=== PATIENT | female | born 1965 ===

== ENCOUNTER 2017-12-31 13:51 | Emergency (ER) | payer MEDICAID, OTHER ==
[2017-12-31 14:11] VITALS: RESP 18; BMI 32.9
--- NOTE | 2017-12-31 14:17 | ED PDOC ---
Arrival/HPI - General Chief Complaint: Headache Time Seen by Provider: 12/31/17 14:15 Historian: Patient - History of Present Illness Narrative History of Present Illness (Text): 12/31/17 14:20 52 year old female, whose PMH includes migraines, who presents to the emergency department complaining of headache since 11 days. Patient reports this is similar symptom to her history of migraines associated with light sensitivity, dizziness, and headache is described as pressure mainly on the left side. Patient notes taking Naprozen and Tylenol, with no significant relief. Patient denies visual changes, shortness of breath, chest pain, abdominal pain, nausea, vomiting, diarrhea, or other complaints. PMD: Dr. Richardson Time/Duration: > week Symptom Onset: Gradual Symptom Course: Unchanged Quality: Pressure Activities at Onset: Rest Context: Home Past Medical History - Provider Review Nursing Documentation Reviewed: Yes - Infectious Disease Hx of Infectious Diseases: None - Reproductive Menopause: Yes Family/Social History - Physician Review Nursing Documentation Reviewed: Yes Family/Social History: Unknown Family HX Allergies/Home Meds Allergies/Adverse Reactions: Allergies No Known Allergies Allergy (Verified 12/31/17 14:11) Review of Systems - Review of Systems Constitutional: absent: Fevers Eyes: absent: Vision Changes ENT: Other (light sensitivity ) Respiratory: absent: SOB Cardiovascular: absent: Chest Pain Gastrointestinal: absent: Abdominal Pain, Nausea Genitourinary Female: absent: Dysuria Musculoskeletal: absent: Back Pain Skin: absent: Rash Neurological: Headache, Dizziness Endocrine: absent: Diaphoresis Physical Exam Vital Signs Reviewed: Yes Vital Signs Temp Pulse Resp BP Pulse Ox 12/31/17 14:08 99.3 F 74 18 123/76 99 Temperature: Afebrile Blood Pressure: Normal Pulse: Regular Respiratory Rate: Normal Appearance: Positive for: Well-Appearing, Non-Toxic, Comfortable Pain Distress: None Mental Status: Positive for: Alert and Oriented X 3 - Systems Exam Head: Present: Atraumatic, Normocephalic Pupils: Present: PERRL Extroacular Muscles: Present: EOMI Conjunctiva: Present: Normal Lower Extremity: Present: Normal Inspection, NORMAL PULSES, Normal ROM, Neurovascularly Intact, Capillary Refill < 2 s. No: Edema, CALF TENDERNESS, Cyanosis, Tenderness, Swelling, Erythema, Deformity Neurological: Present: GCS=15, CN II-XII Intact, Speech Normal, Motor Func Grossly Intact, Normal Sensory Function, Memory Normal Skin: Present: Warm, Dry, Normal Color. No: Rashes Psychiatric: Present: Alert, Oriented x 3, Normal Insight, Normal Concentration Medical Decision Making ED Course and Treatment: 12/31/17 Impression: 52 year old female with unremarkable physical exam complaining of migraine Differential Diagnosis included but are not limited to: Migraine Plan: -- Benadryl, Reglan, and Toradol -- Reassess and disposition Progress Notes: 12/31/17 16:05 Patients symptoms subsided and she feels much much better. She will make sure to see a neurologist and to follow up with her PMD. Rx Naproxen. I advised her to read discharge instructions and explained to her to return to the ED if symptoms worsen or any other concern. - Medication Orders Current Medication Orders: Discontinued Medications Diphenhydramine HCl (Benadryl) 50 mg IVP STAT STA Stop: 12/31/17 14:28 Last Admin: 12/31/17 14:37 Dose: 50 mg IVP Administration Document 12/31/17 14:37 MR (Rec: 12/31/17 14:37 [id number]) Charges for Administration # of IVP Administrations 1 Ketorolac Tromethamine (Toradol) 30 mg IVP STAT STA Stop: 12/31/17 14:28 Last Admin: 12/31/17 14:37 Dose: 30 mg MAR Pain Assessment Document 12/31/17 14:37 MR (Rec: 12/31/17 14:37 [id number]) Pain Reassessment Is this a pain reassessment? No IVP Administration Document 12/31/17 14:37 MR (Rec: 12/31/17 14:37 MR [id number]) Charges for Administration # of IVP Administrations 1 Metoclopramide HCl (Reglan) 10 mg IVP STAT STA Stop: 12/31/17 14:28 Last Admin: 12/31/17 14:36 Dose: 10 mg IVP Administration Document 12/31/17 14:36 MR (Rec: 12/31/17 14:36 [id number]) Charges for Administration # of IVP Administrations 1 - Scribe Statement The provider has reviewed the documentation as recorded by the Man Salvador Provider Scribe Attestation: All medical record entries made by the Scribe were at my direction and personally dictated by me. I have reviewed the chart and agree that the record accurately reflects my personal performance of the history, physical exam, medical decision making, and the department course for this patient. I have also personally directed, reviewed, and agree with the discharge instructions and disposition. Disposition/Present on Arrival - Present on Arrival Any Indicators Present on Arrival: No History of DVT/PE: No History of Uncontrolled Diabetes: No Urinary Catheter: No History of Decub. Ulcer: No History Surgical Site Infection Following: None - Disposition Have Diagnosis and Disposition been Completed?: Yes Diagnosis: Migraine Disposition: HOME/ ROUTINE Disposition Time: 16:06 Patient Plan: Discharge Patient Problems: Current Active Problems Problem Status Onset Migraine Acute Condition: IMPROVED Discharge Instructions (ExitCare): Migraine Headache (DC), Migraine Headaches in Adults Additional Instructions: YANE QUIROS, thank you for letting us take care of you today. Your provider was William Boothe DO and you were treated for MIGRAINE. The emergency medical care you received today was directed at your acute symptoms. If you were prescribed any medication, please fill it and take as directed. It may take several days for your symptoms to resolve. Return to the Emergency Department if your symptoms worsen, do not improve, or if you have any other problems. Please contact your doctor or call one of the physicians/clinics you have been referred to that are listed on the Patient Visit Information form that is included in your discharge packet. Bring any paperwork you were given at discharge with you along with any medications you are taking to your follow up visit. Our treatment cannot replace ongoing medical care by a primary care provider outside of the emergency department. Thank you for allowing the [facility] team to be part of your care today. If you had an X-Ray or CT scan: A Radiologist will review the ED reading if any change in treatment is needed we will contact you. If you had a blood, urine, or wound culture: It will take several days for the results, if any change in treatment is needed we will contact you. If you had an STI test: It will take 48 hours for the results. Please call after 1 week if you have not heard back. Prescriptions: Naproxen 500 mg PO BID PRN #30 tab PRN Reason: Pain, Moderate (4-7) Referrals: Saleeb,Phil S, MD [Staff Provider] - Follow up with primary Siddhartha Moreno MD [Staff Provider] - Follow up with primary Forms: [employer] ([place]izen [place])
[2017-12-31] MEDS ORDERED: DiphenhydrAMINE 50 mg/ml Inj IVP STA (14:27)
[2017-12-31] MEDS ORDERED: HYDROmorphone 1 mg/ml ISec IVP STA (14:57)
[2017-12-31 16:27] VITALS: BP 118/70; PULSE 70; TEMP 98.6; O2SAT 97
== END 2017-12-31 16:13 | disposition home or self-care (01) ==
LOC: ED 13:51
DX: G43.909 Migraine, unspecified, not intractable, without status migrainosus (principal)
CPT/HCPCS: 96374; 96375; 99285; J1200; J1885; J2765